=== PATIENT | female | born 1935 | race Two or more races ===

== ENCOUNTER 2023-03-25 04:20 | Inpatient (IN) | payer OTHER ==
[~2023-03-25] VITALS: Ht 167 cm; Wt 104.7 kg
[2023-03-26] VITALS (29 sets, daily range): BP systolic 96–188; BP diastolic 51–96; PULSE 96–131; RESP 14–24; TEMP 97.9–99.1; O2SAT 91–97
[2023-03-26] MEDS ORDERED: DEXTROSE (50%) 50ML SYRG IV PRN (06:00)
[2023-03-26] MEDS ORDERED: ONDANSETRON HCL 4 MG/2 ML VIAL IV PRN ×2 (06:00→15:45)
[2023-03-26] MEDS ORDERED: hydrALAZINE HCL 10 MG TAB PO PRN (06:00)
[2023-03-26] MEDS ORDERED: ACETAMINOPHEN 325 MG TAB PO PRN (06:00)
[2023-03-26] MEDS ORDERED: AMIO200T33 PO (06:19)
[2023-03-26] MEDS ORDERED: GABA-1308 PO (06:19)
[2023-03-26] MEDS ORDERED: LOSA25TA15 PO (06:19)
[2023-03-26] MEDS ORDERED: METF-372 PO (06:19)
[2023-03-26] MEDS ORDERED: APIX2.5T PO (06:19)
[2023-03-26] MEDS ORDERED: CLON0.1T PO (06:19)
[2023-03-26 06:52] LABS: INR 1.14 (0.9-1.15)
[2023-03-26 06:56] LABS: Basophils # (auto) 0 10 ^3/uL (0-0.2); Basophils % (auto) 0.3 % (0.0-2.0); Eosinophils # (auto) 0 10 ^3/uL (0-0.8); Eosinophils % (auto) 0.2 % (0.0-7.0); Hematocrit 48.6 % (36.0-46.0); Hemoglobin 16.2 g/dL (12.2-16.2); Lymphocytes # (auto) 0.8 10 ^3/uL (0.4-5.4); Lymphocytes % (auto) 8.4 % (10.0-50.0); Mean Corpuscular Hemoglobin 30.6 pg (28.0-32.0); Mean Corpuscular Hgb Conc. 33.3 g/dL (32.0-36.0); Mean Corpuscular Volume 91.8 fL (80.0-100.0); Monocytes # (auto) 0.8 10 ^3/uL (0-1.3); Monocytes % (auto) 7.9 % (0.0-12.0); Neutrophils # (auto) 8.4 10 ^3/uL (1.6-8.6); Neutrophils % (auto) 83.2 % (37.0-80.0); Red Blood Cells 5.29 10^6/uL (4.0-5.20); Red Cell Distribution Width 14.3 % (11.8-14.3); White Blood Cell 10.1 10^3/uL (4.4-10.8)
[2023-03-26] MEDS: ACCU-CHEK COMFORT CURVE STRIP VI SCH ×3 (07:00→19:41)
[2023-03-26 07:01] LABS: BUN/Creatinine Ratio 15.6 (10.0-20.0); Calcium 9.1 mg/dL (8.5-10.1); Potassium 4.4 mmol/L (3.5-5.1)
[2023-03-26] MEDS ORDERED: D5W/SOD CHLO 0.9% 1,000 ML IV SCH (07:30)
[2023-03-26] MEDS ORDERED: hydrALAZINE HCL 20 MG/ML VL IV PRN (09:15)
[2023-03-26] MEDS: LOSARTAN POTASSIUM 25 MG TAB PO SCH (10:49)
[2023-03-26] MEDS: AMIODARONE HCL 200 MG TAB PO SCH ×2 (10:50→22:31)
[2023-03-26] MEDS: MORPHINE SULFATE INJ 2 MG/ml SYRG IV PRN (10:53)
[2023-03-26] MEDS ORDERED: MORPHINE SULFATE INJ 2 MG/ml SYRG IV PRN (11:30)
[2023-03-26] MEDS ORDERED: HYDROmorphone HCL 2 MG/ML VL/or syr IV PRN ×2 (11:30)
[2023-03-26] MEDS ORDERED: METOCLOPRAMIDE HCL 5MG/ml INJ 2ml VIAL IV PRN (11:30)
[2023-03-26] MEDS ORDERED: ACCU-CHEK COMFORT CURVE STRIP VI ONE (11:30)
[2023-03-26] MEDS: InsuLIN REG 1unit/0.01ml Soln (100units/ml) SC SCH ×3 (11:30→19:46)
[2023-03-26] MEDS ORDERED: fentaNYL CITRATE 100 MCG/2 ML VL ONE ×2 (11:50→14:23)
[2023-03-26] MEDS ORDERED: MEPERIDINE HCL (50 MG/ML) 1 ML VIAL ONE (11:50)
[2023-03-26] MEDS ORDERED: ROCURONIUM 10MG/ML 10ML VIAL IV ONE (11:51)
[2023-03-26] MEDS ORDERED: SODIUM CHLORIDE LOCK 10 ML ONE (11:51)
[2023-03-26] MEDS ORDERED: ONDANSETRON HCL 4 MG/2 ML VIAL ONE (11:51)
[2023-03-26] MEDS ORDERED: ETOMIDATE (2MG/ML) 20ML VIAL IV ONE (11:51)
[2023-03-26] MEDS ORDERED: MIDAZOLAM HCL 2MG/2ML 2ml VIAL (1mg/ml) ONE (11:51)
[2023-03-26] MEDS ORDERED: ceFAZolin 1GM/50ML 100 ML IV ONE (13:02)
[2023-03-26] MEDS ORDERED: LIDOCAINE W/ EPINEPHRINE 2% INJ 20ML VIAL ONE ×2 (13:48→14:36)
[2023-03-26] MEDS ORDERED: BUPIVACAINE 0.25% INJ 50ML VIAL ONE ×2 (13:48→14:36)
[2023-03-26] MEDS: InsuLIN REG 1unit/0.01ml Soln (100units/ml) IV ONE (15:41)
[2023-03-26] MEDS ORDERED: InsuLIN REG 1unit/0.01ml Soln (100units/ml) IV ONE ×2 (16:20→16:26)
[2023-03-26] MEDS ORDERED: InsuLIN REG 1unit/0.01ml Soln (100units/ml) ONE (16:20)
[2023-03-26] MEDS ORDERED: InsuLIN REG 1unit/0.01ml Soln (100units/ml) SC ONE (16:20)
[2023-03-26] MEDS ORDERED: methylPREDNISolone SOD SUCC 40 MG/ML VL IV ONE (17:00)
[2023-03-26] MEDS ORDERED: FUROSEMIDE 20 MG/2 ML VIAL IV ONE (17:00)
[2023-03-26] MEDS ORDERED: FUROSEMIDE 20 MG/2 ML VIAL ONE (17:01)
[2023-03-26] MEDS ORDERED: methylPREDNISolone SOD SUCC 125 MG/2 ML VL ONE (17:09)
[2023-03-26] MEDS ORDERED: METOPROLOL TARTRATE 1MG/1ML-5ML VIAL IV ONE (17:30)
[2023-03-26 17:45] LABS: BUN/Creatinine Ratio 11.4 (10.0-20.0); Calcium 7.5 mg/dL (8.5-10.1); Potassium 3.3 mmol/L (3.5-5.1)
[2023-03-26] MEDS: SODIUM CHLORIDE 0.9% 1,000 ML IV SCH (20:37)
[2023-03-26] MEDS: ceFAZolin 2 GM/D5W100ml 100 ML IV SCH (22:36)
[2023-03-27] VITALS (46 sets, daily range): BP systolic 104–154; BP diastolic 41–72; PULSE 92–136; RESP 12–24; TEMP 97.8–99.2; O2SAT 80–99
[2023-03-27] MEDS ORDERED: DEXTROSE (50%) 50ML SYRG IV PRN ×4 (00:15→18:00)
[2023-03-27] MEDS: ACCU-CHEK COMFORT CURVE STRIP VI SCH ×5 (00:22→22:38)
[2023-03-27] MEDS: InsuLIN REG 1unit/0.01ml Soln (100units/ml) SC SCH ×4 (00:25→22:43)
[2023-03-27 04:25] LABS: Basophils # (auto) 0 10 ^3/uL (0-0.2); Basophils % (auto) 0.1 % (0.0-2.0); Eosinophils # (auto) 0 10 ^3/uL (0-0.8); Hematocrit 41.8 % (36.0-46.0); Hemoglobin 13.6 g/dL (12.2-16.2); Lymphocytes # (auto) 0.6 10 ^3/uL (0.4-5.4); Lymphocytes % (auto) 3.5 % (10.0-50.0); Mean Corpuscular Hemoglobin 30.5 pg (28.0-32.0); Mean Corpuscular Hgb Conc. 32.6 g/dL (32.0-36.0); Mean Corpuscular Volume 93.7 fL (80.0-100.0); Monocytes # (auto) 0.9 10 ^3/uL (0-1.3); Monocytes % (auto) 5.3 % (0.0-12.0); Neutrophils % (auto) 91.1 % (37.0-80.0); Red Blood Cells 4.46 10^6/uL (4.0-5.20); Red Cell Distribution Width 14.9 % (11.8-14.3); White Blood Cell 17.6 10^3/uL (4.4-10.8)
[2023-03-27 04:45] LABS: Calcium 9.1 mg/dL (8.5-10.1); Potassium 4.3 mmol/L (3.5-5.1)
[2023-03-27 04:48] LABS: BUN/Creatinine Ratio 13.2 (10.0-20.0)
[2023-03-27] MEDS: ceFAZolin 2 GM/D5W100ml 100 ML IV SCH ×3 (06:31→22:34)
[2023-03-27] MEDS: SODIUM CHLORIDE 0.9% 1,000 ML IV SCH ×5 (06:33→22:34)
[2023-03-27] MEDS ORDERED: SODIUM CHLORIDE 0.9% 500 ML IV ONE (07:15)
[2023-03-27] MEDS: MORPHINE SULFATE INJ 2 MG/ml SYRG IV PRN ×2 (08:28→21:38)
[2023-03-27] MEDS: METOPROLOL TARTRATE 25 MG TAB PO SCH ×2 (08:29→22:35)
[2023-03-27] MEDS ORDERED: INSULIN LANTUS (GLARGINE) 1 /0.01ml (100units/ml) SC ONE ×2 (09:15)
[2023-03-27] MEDS ORDERED: InsuLIN R (HUMAN) 100 UNITS in SODIUM CHL 0.9% 99 ML IV SCH ×4 (09:15)
[2023-03-27] MEDS: AMIODARONE HCL 200 MG TAB PO SCH ×2 (10:17→22:34)
[2023-03-27] MEDS: LOSARTAN POTASSIUM 25 MG TAB PO SCH (10:18)
[2023-03-27] MEDS ORDERED: ACCU-CHEK COMFORT CURVE STRIP VI SCH ×3 (10:30→17:00)
[2023-03-27 12:09] LABS: Basophils # (auto) 0 10 ^3/uL (0-0.2); Basophils % (auto) 0.1 % (0.0-2.0); Eosinophils # (auto) 0 10 ^3/uL (0-0.8); Hematocrit 35.9 % (36.0-46.0); Hemoglobin 11.8 g/dL (12.2-16.2); Lymphocytes # (auto) 0.7 10 ^3/uL (0.4-5.4); Lymphocytes % (auto) 4.7 % (10.0-50.0); Mean Corpuscular Hemoglobin 30.3 pg (28.0-32.0); Mean Corpuscular Hgb Conc. 32.8 g/dL (32.0-36.0); Mean Corpuscular Volume 92.4 fL (80.0-100.0); Monocytes # (auto) 1.1 10 ^3/uL (0-1.3); Monocytes % (auto) 7.1 % (0.0-12.0); Neutrophils # (auto) 13.4 10 ^3/uL (1.6-8.6); Neutrophils % (auto) 88.1 % (37.0-80.0); Nucleated Red Blood Cells % 0.1 %; Red Blood Cells 3.89 10^6/uL (4.0-5.20); Red Cell Distribution Width 14.5 % (11.8-14.3); White Blood Cell 15.2 10^3/uL (4.4-10.8)
[2023-03-27 12:32] LABS: BUN/Creatinine Ratio 13.6 (10.0-20.0); Magnesium 2.2 mg/dL (1.6-2.6); Phosphorus 2.2 mg/dL (2.5-4.90); Potassium 4.1 mmol/L (3.5-5.1)
[2023-03-27] MEDS ORDERED: SODIUM CHLORIDE 0.9% 1,000 ML IV SCH ×2 (13:15→15:15)
[2023-03-27] MEDS: HYDROcodone-ACET 5/325MG TAB PO PRN ×2 (14:41→19:00)
[2023-03-27] MEDS ORDERED: FURO40TA4 PO (17:05)
[2023-03-27] MEDS ORDERED: LOS25T PO (17:05)
[2023-03-27] MEDS ORDERED: METO-289 PO (17:05)
[2023-03-27] MEDS ORDERED: LEVO137T3 PO (17:05)
[2023-03-27] MEDS ORDERED: FAMO20TA10 PO (17:05)
[2023-03-27] MEDS ORDERED: POTA-228 PO (17:05)
[2023-03-27] MEDS ORDERED: ALBUTEROL SULF 2.5 MG/0.5ML(0.5%) NEB SOLN NEB PRN (17:30)
[2023-03-27] MEDS: APIXABAN 2.5 MG TAB PO SCH (22:35)
[2023-03-27] MEDS: ATORVASTATIN 20 MG TAB PO SCH (22:35)
[2023-03-27] MEDS: FAMOTIDINE 20 MG TAB PO SCH (22:35)
[2023-03-27] MEDS: INSULIN LANTUS (GLARGINE) 1 /0.01ml (100units/ml) SC SCH (22:42)
[2023-03-28] VITALS (10 sets, daily range): BP systolic 123–159; BP diastolic 47–80; PULSE 73–107; RESP 14–19; TEMP 97.6–98.9; O2SAT 95–100
[2023-03-28 06:05] LABS: Basophils # (auto) 0 10 ^3/uL (0-0.2); Basophils % (auto) 0.1 % (0.0-2.0); Eosinophils # (auto) 0 10 ^3/uL (0-0.8); Hematocrit 31.4 % (36.0-46.0); Hemoglobin 10.3 g/dL (12.2-16.2); Lymphocytes % (auto) 8.3 % (10.0-50.0); Mean Corpuscular Hemoglobin 30.5 pg (28.0-32.0); Mean Corpuscular Hgb Conc. 32.9 g/dL (32.0-36.0); Mean Corpuscular Volume 92.8 fL (80.0-100.0); Monocytes # (auto) 1.3 10 ^3/uL (0-1.3); Monocytes % (auto) 10.9 % (0.0-12.0); Neutrophils % (auto) 80.7 % (37.0-80.0); Nucleated Red Blood Cells % 0.1 %; Red Blood Cells 3.38 10^6/uL (4.0-5.20); Red Cell Distribution Width 14.7 % (11.8-14.3); White Blood Cell 12.4 10^3/uL (4.4-10.8)
[2023-03-28 06:26] LABS: BUN/Creatinine Ratio 22.5 (10.0-20.0); Calcium 8.7 mg/dL (8.5-10.1); Potassium 4.1 mmol/L (3.5-5.1)
[2023-03-28] MEDS: LEVOTHYROXINE SODIUM 112 MCG TAB PO SCH (06:30)
[2023-03-28] MEDS: LEVOTHYROXINE SODIUM 25 MCG TAB PO SCH (06:30)
[2023-03-28] MEDS: ceFAZolin 2 GM/D5W100ml 100 ML IV SCH ×3 (06:30→21:23)
[2023-03-28] MEDS: INSULIN LANTUS (GLARGINE) 1 /0.01ml (100units/ml) SC SCH ×2 (06:32→21:19)
[2023-03-28] MEDS: ACCU-CHEK COMFORT CURVE STRIP VI SCH ×4 (06:32→21:11)
[2023-03-28] MEDS: InsuLIN REG 1unit/0.01ml Soln (100units/ml) SC SCH ×4 (06:33→21:13)
[2023-03-28] MEDS ORDERED: SODIUM CHL 0.9% 1000 ML BAG XX ONE (07:00)
[2023-03-28] MEDS: AMIODARONE HCL 200 MG TAB PO SCH ×2 (09:51→21:29)
[2023-03-28] MEDS: APIXABAN 2.5 MG TAB PO SCH ×2 (09:52→21:29)
[2023-03-28] MEDS: LOSARTAN POTASSIUM 25 MG TAB PO SCH (09:52)
[2023-03-28] MEDS: METOPROLOL TARTRATE 25 MG TAB PO SCH ×2 (09:52→21:29)
[2023-03-28] MEDS ORDERED: FUROSEMIDE 20 MG TAB PO SCH (10:00)
[2023-03-28] MEDS ORDERED: INSULIN LANTUS (GLARGINE) 1 /0.01ml (100units/ml) SC SCH ×2 (10:00)
[2023-03-28] MEDS: HYDROcodone-ACET 5/325MG TAB PO PRN (10:21)
[2023-03-28] MEDS: SODIUM CHLORIDE 0.9% 1,000 ML IV SCH ×2 (13:15→23:15)
[2023-03-28] MEDS ORDERED: EPOETIN ALFA-EPBX 10,000 UNIT/1ML VIAL SC ONE (21:00)
[2023-03-28] MEDS: FAMOTIDINE 20 MG TAB PO SCH (21:29)
[2023-03-28] MEDS: ATORVASTATIN 20 MG TAB PO SCH (21:29)
[2023-03-29 05:00] VITALS: BP 122/60; PULSE 81; RESP 20; TEMP 97; O2SAT 97
[2023-03-29] MEDS: ceFAZolin 2 GM/D5W100ml 100 ML IV SCH (06:31)
[2023-03-29] MEDS: ACCU-CHEK COMFORT CURVE STRIP VI SCH ×2 (06:35→13:44)
[2023-03-29] MEDS: InsuLIN REG 1unit/0.01ml Soln (100units/ml) SC SCH ×2 (06:40→11:30)
[2023-03-29] MEDS: INSULIN LANTUS (GLARGINE) 1 /0.01ml (100units/ml) SC SCH (06:41)
[2023-03-29] MEDS: LEVOTHYROXINE SODIUM 25 MCG TAB PO SCH (06:42)
[2023-03-29 06:43] LABS: Basophils # (auto) 0 10 ^3/uL (0-0.2); Basophils % (auto) 0.1 % (0.0-2.0); Eosinophils # (auto) 0.1 10 ^3/uL (0-0.8); Eosinophils % (auto) 1.3 % (0.0-7.0); Hematocrit 27.2 % (36.0-46.0); Hemoglobin 9.3 g/dL (12.2-16.2); Lymphocytes # (auto) 1.1 10 ^3/uL (0.4-5.4); Lymphocytes % (auto) 14.2 % (10.0-50.0); Mean Corpuscular Hemoglobin 31.4 pg (28.0-32.0); Mean Corpuscular Hgb Conc. 34.2 g/dL (32.0-36.0); Mean Corpuscular Volume 91.8 fL (80.0-100.0); Monocytes # (auto) 0.7 10 ^3/uL (0-1.3); Monocytes % (auto) 9.3 % (0.0-12.0); Neutrophils # (auto) 5.8 10 ^3/uL (1.6-8.6); Neutrophils % (auto) 75.1 % (37.0-80.0); Nucleated Red Blood Cells % 0.1 %; Red Blood Cells 2.97 10^6/uL (4.0-5.20); Red Cell Distribution Width 14.4 % (11.8-14.3); White Blood Cell 7.8 10^3/uL (4.4-10.8)
[2023-03-29] MEDS: LEVOTHYROXINE SODIUM 112 MCG TAB PO SCH (06:43)
[2023-03-29 06:57] LABS: BUN/Creatinine Ratio 31.1 (10.0-20.0); Calcium 8.7 mg/dL (8.5-10.1); Potassium 3.9 mmol/L (3.5-5.1)
[2023-03-29 07:43] VITALS: PULSE 90; RESP 18; O2SAT 95
[2023-03-29 08:00] VITALS: PULSE 77
[2023-03-29] MEDS: APIXABAN 2.5 MG TAB PO SCH (08:54)
[2023-03-29] MEDS: HYDROcodone-ACET 5/325MG TAB PO PRN ×2 (08:54→13:43)
[2023-03-29] MEDS: AMIODARONE HCL 200 MG TAB PO SCH (08:54)
[2023-03-29 09:00] VITALS: BP 97/55; PULSE 79; RESP 20; TEMP 97.6; O2SAT 96
[2023-03-29] MEDS: LOSARTAN POTASSIUM 25 MG TAB PO SCH (09:00)
[2023-03-29] MEDS: METOPROLOL TARTRATE 25 MG TAB PO SCH (09:01)
[2023-03-29 12:33] VITALS: O2SAT 100
[2023-03-29 13:00] VITALS: BP 145/43; PULSE 89; RESP 24; TEMP 97.9; O2SAT 97
[2023-03-29] MEDS: SODIUM CHLORIDE 0.9% 1,000 ML IV SCH (13:44)
== END 2023-03-29 15:40 | DRG 480 ==
LOC: TELE-CENTR 03-26 04:40 → UNDOADMIN 03-26 04:40 → TELE-CENTR 03-26 05:52 → ICU WEST 03-26 18:26 → WEST WING 03-27 23:42 → TELE-WESTW 03-27 23:43
PROVIDERS: ADMIT Internal Medicine; ATTEND Internal Medicine
PROC: 0QS734Z Reposition Left Upper Femur with Internal Fixation Device, Percutaneous Approach (ICD-10-PCS; principal; 2023-03-26 14:11)
DX: S72.142A Displaced intertrochanteric fracture of left femur, initial encounter for closed fracture (principal); E11.10 Type 2 diabetes mellitus with ketoacidosis without coma; N17.0 Acute kidney failure with tubular necrosis; J96.20 Acute and chronic respiratory failure, unspecified whether with hypoxia or hypercapnia; J98.11 Atelectasis; F03.90 Unspecified dementia, unspecified severity, without behavioral disturbance, psychotic disturbance, mood disturbance, and anxiety; E11.22 Type 2 diabetes mellitus with diabetic chronic kidney disease; E66.01 Morbid (severe) obesity due to excess calories; W18.39XA Other fall on same level, initial encounter; E78.5 Hyperlipidemia, unspecified; I12.9 Hypertensive chronic kidney disease with stage 1 through stage 4 chronic kidney disease, or unspecified chronic kidney disease; I48.0 Paroxysmal atrial fibrillation; K21.9 Gastro-esophageal reflux disease without esophagitis; E86.0 Dehydration; N18.31 Chronic kidney disease, stage 3a; E03.9 Hypothyroidism, unspecified; Z85.850 Personal history of malignant neoplasm of thyroid; Z88.2 Allergy status to sulfonamides; Z82.49 Family history of ischemic heart disease and other diseases of the circulatory system; Z80.9 Family history of malignant neoplasm, unspecified; Z68.36 Body mass index [BMI] 36.0-36.9, adult; Y93.89 Activity, other specified; Y92.89 Other specified places as the place of occurrence of the external cause; Y99.8 Other external cause status
CPT/HCPCS: 36415; 36600; 71045; 73502; 76000; 80048; 82010; 82805; 82962; 83036; 83735; 83930; 84100; 85025; 85610; 87081; 93306; 97110; 97163; 97530; C1713; C1769; G0378; J0690; J1815; J2250; J2405; J3490